=== PATIENT | male | born 1940 | race Caucasian/White ===

== ENCOUNTER 2018-12-22 11:49 | Day surgery (SDC) | payer MEDICARE, BC ==
[~2018-12-22 11:49] MED LIST: PROPOFOL 500 MG/50 ML EMU IV ONE
[2018-12-22 13:55] VITALS: BP 96/74; PULSE 77; RESP 20; TEMP 97.4; O2SAT 95
== END 2018-12-22 14:23 | disposition home or self-care (01) | DRG 951 ==
LOC: SURG 11:49
PROVIDERS: ATTEND Surgery
DX: Z12.11 Encounter for screening for malignant neoplasm of colon (principal); K57.32 Diverticulitis of large intestine without perforation or abscess without bleeding; Z80.0 Family history of malignant neoplasm of digestive organs; Z86.010 Personal history of colon polyps; D12.0 Benign neoplasm of cecum
CPT/HCPCS: J2001; J2704